=== PATIENT | male | born 1955 | race Caucasian/White ===

== ENCOUNTER → 2017-11-04 | Outpatient (CLI) | payer MEDICARE ==
[~2017-11-04] MED LIST: ACTONEL 5 MG5 M1 PO; ADULT LOW DOSE81 MG PO; ASPIRIN81 M2 PO; AUGMENTIN 875875 M1; B12INJ SUBQ; CANASA1000 MG RC; CARAFATE 11 GM/10 M1 PO; DEXAMETHASONE 44 M1 PO; FENTANYL PA25 MCG/HR TRANSDERM; FLONASE16 GM NASAL; FOSAMAX 10 MG10 MG PG; HYDROGEN PEROX480 M1; OMEPRAZOLE40 MG PO; ONDANSETRON ODT4 MG PO; OXYCODONE H5 MG/5 ML PER TUBE; PERCOCET 5-3251 EACH; PROTONIX40 M2 PO; RANITIDINE15 MG/1 ML PO; REMICADE 1100 MG/VIA IV; TRIPLE ANTIBIOT30 G2; VITAMIN D 5050000 I1 PO
== END ==
LOC: M.WC 10:00
DX: M27.8 Other specified diseases of jaws (principal); I10 Essential (primary) hypertension; F17.200 Nicotine dependence, unspecified, uncomplicated; Z85.828 Personal history of other malignant neoplasm of skin; Z90.49 Acquired absence of other specified parts of digestive tract; Z92.3 Personal history of irradiation

== ENCOUNTER → 2017-11-22 | Outpatient (CLI) | payer MEDICARE ==
--- NOTE | 2017-12-07 02:37 | ONC ---
[place] [address] RADIATION ONCOLOGY NOTE Name: DALTON MARAVILLA Room: [facility]#: [id number] Admission: 11/22/17 Attend Phys: Arturo Carlisle MD Discharge: Date of : 59 Report #: [id number] THIS REPORT FOR: //name// CC: Arturo Carlos MD DATE OF SERVICE: 11/22/2017 REFERRING PHYSICIANS: Dr. Us and that is primary care physician; Dr. Lyle Carreno from Cardiology; Ángel Schroeder DO; Baljit Morales MD.; Gilda Carlos MD. [facility] phone is [phone]. PRIMARY SITE AND HISTOPATHOLOGY: The patient received postoperative radiation therapy for a stage VILLA oropharyngeal cancer. The patient underwent a right radical tonsillectomy as well as right modified radical neck dissection. The patient had 5 out of 20 lymph nodes involved with poorly differentiated squamous cell carcinoma. He went on to receive postoperative chemoradiotherapy. The radiation treatments were completed on 02/10/2013. INTERVAL NOTE: The patient is eating well. He is eating a regular diet. He uses PreviDent. He also likes to use Biotene. He has a tooth that fractured in the lower left mandibular area. So, he is undergoing hyperbaric oxygen treatments in preparation for its extraction. He is going to be seeing a physician, Dr. Barber, to remove it. In spite of the tooth issues, he is able to still eat food such as pastas like Rigatoni. MEDICATIONS: 125 mcg of levothyroxine, Crestor, Prevacid, and Flonase for allergies. 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 Cigarettes: He has transitioned from cigarettes, which he smoked for about 20 years, then in 1990 he switched to smoking cigars and he still smokes cigars. REVIEW OF SYSTEMS: RESPIRATORY: The patient's breathing was baseline. He was not short of breath. MUSCULOSKELETAL: He had good range of motion in his upper extremity. PHYSICAL EXAMINATION: VITAL SIGNS: The patient weighed 199.2 pounds on 11/22/2017, 197 pounds on 05/17/2017. On 11/22/2017, [place] [address] RADIATION ONCOLOGY NOTE Name: DALTON MARAVILLA Room: [facility]#: [id number] Admission: 11/22/17 Attend Phys: Arturo Carlisle MD Discharge: Date of : 59 Report #: [id number] 130/86, pulse 66, respirations 20. LYMPH NODES: He had no palpable cervical or supraclavicular lymphadenopathy. HEAD, EYES, EARS, NOSE AND THROAT EXAM: Mouth had no suspicious visible lesions or suspicious palpable lesions. There were no suspicious palpable lesions in the tonsillar area that were seen. HEART: Had a regular rate and rhythm without murmur. LUNGS: were clear to auscultation. LABORATORY DATA: From 11/20/2017, TSH was 1.88, which was within normal limits on his present dose of 25 mcg of levothyroxine. ASSESSMENT AND PLAN: 1. History of head and neck cancer- There is no evidence of head and neck cancer at this time. The patient was asked to schedule a followup appointment to see me in about 6-7 months. 2. Hypothyroidism- The patient was given a refill for 125 mcg of levothyroxine per day. A TSH was ordered in about 6-7 months and the patient was asked to schedule a followup appointment to see me afterwards. 3. Dental care- he is undergoing an extraction after hyperbaric treatments and he was given a refill for PreviDent to use for dental care. 4. Cigarette smoking- The patient was given a requisition for a screening chest CT without contrast in 05/2018 or 06/2018 and he was asked to schedule a follow up appointment with me afterwards. 5. Aortic ectasia- The patient continues to see the timber surveyor, Dr. Lyle Carreno, who monitors that issue. 6. Crohn's disease, appears to be in remission- He follows with Dr. Schroeder with regards to that issue. Thank you for allowing me to participate in the care of this patient. <ELECTRONICALLY SIGNED> By: Arturo Carlisle MD 12/07/17 0237 [id number] [id number] Carlisle MD /nt
== END ==
LOC: M.RTH 01:54
DX: Z08 Encounter for follow-up examination after completed treatment for malignant neoplasm (principal); E03.9 Hypothyroidism, unspecified; F17.200 Nicotine dependence, unspecified, uncomplicated; I77.819 Aortic ectasia, unspecified site; K50.90 Crohn's disease, unspecified, without complications; Z85.89 Personal history of malignant neoplasm of other organs and systems

== ENCOUNTER → 2017-12-02 | Outpatient (CLI) | payer MEDICARE | LOC: M.WC 04:53 | DX: M27.8 Other specified diseases of jaws (principal); I10 Essential (primary) hypertension; F17.210 Nicotine dependence, cigarettes, uncomplicated; Z72.89 Other problems related to lifestyle ==

== ENCOUNTER → 2018-07-09 | Outpatient (CLI) | payer MEDICARE ==
--- NOTE | 2018-07-21 22:33 | ONC ---
[address] [address] RADIATION ONCOLOGY NOTE Name: DALTON MARAVILLA Room: [facility]#: [id number] Admission: 07/09/18 Attend Phys: Arturo Carlisle MD Discharge: Date of : 59 Report #: [id number] THIS REPORT FOR: //name// CC: Arturo Fraser DATE OF SERVICE: 07/09/2018 REFERRING PHYSICIANS: Include, Dr. Cal Us; Dr. Lyle Carreno; Dr. Ángel Schroeder; Dr. Baljit Morales, Dr. Gilda Carlos and Dr. Fraser. [facility] phone is [phone]. PRIMARY SITE AND HISTOPATHOLOGY: The patient received postoperative radiation therapy for a stage VILLA oropharyngeal cancer. The patient underwent a right radical tonsillectomy as well as right modified radical neck dissection. The patient had 5/20 lymph nodes involved with poorly differentiated squamous cell carcinoma. He went on to receive postoperative chemoradiotherapy. The radiation treatments were completed on 02/10/2013. INTERVAL NOTE: The patient is eating well. He is eating a regular diet. He uses PreviDent gel and he has done well after having a fractured tooth extracted and undergoing hyperbaric oxygen. He felt like that has healed up well. He had that taken care of by his oral surgeon, Dr. Fraser. MEDICATIONS: 125 mcg of levothyroxine, Crestor, Prevacid, Flonase for allergies. 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 Cigarettes: he has transitioned from cigarettes, which he smoked for about 20 years. Then around 1990, he switched to smoking cigars and he still smokes cigars. REVIEW OF SYSTEMS: RESPIRATORY: The patient's breathing was baseline. He was not short of breath. MUSCULOSKELETAL: He has good range of motion in his upper extremity. PHYSICAL EXAMINATION: VITAL SIGNS: The patient weighed 199.4 pounds on 07/09/2018 and 199.2 pounds on 11/22/2017. On 07/09/2018 blood pressure was 134/71, pulse 55, respirations 20, oxygen saturation 98%. LYMPH NODES: The patient had no palpable [place] [address] RADIATION ONCOLOGY NOTE Name: DALTON MARAVILLA Room: [facility]#: [id number] Admission: 07/09/18 Attend Phys: Arturo Carlisle MD Discharge: Date of : 59 Report #: [id number] lymphadenopathy. HEAD, EYES, EARS, NOSE AND THROAT: Mouth had no suspicious visible lesions or suspicious palpable lesions. There were no suspicious palpable lesions in the tonsillar area. HEART: Had a regular rate and rhythm without murmur. LUNGS: were clear to auscultation. LABORATORY DATA: From 07/07/2018, TSH was 1.89, which was within normal limits on his present dose of 125 mcg of levothyroxine per day. ASSESSMENT AND PLAN: 1. History of head and neck cancer- There is no evidence of head and neck cancer at this time. The patient was asked to schedule a followup appointment to see me in about 1 year. 2. Hypothyroidism- The patient was given a refill for 125 mcg of levothyroxine per day. TSH was ordered in about 1 year and the patient was asked to schedule a followup appointment to see me afterwards. 3. Dental care- The patient was given a refill for PreviDent and he puts that on his teeth with a brush at night. 4. Cigar smoking- The patient was encouraged to quit smoking cigars. 5. Aortic ectasia- The patient continues to follow up with his film numberer, Dr. Lyle Carreno. He just said he saw him last Saturday and he sees him about once a year. 6. Crohn's disease appears to be in remission- He follows with his tank cooper, Dr. Schroeder, with regards to that issue. Thank you for allowing me to participate in the care of this patient. <ELECTRONICALLY SIGNED> By: Arturo Carlisle MD 07/21/18 2233 [id number] Carlisle MD /nt
== END ==
LOC: M.RTH 05:21
DX: E03.9 Hypothyroidism, unspecified (principal); F17.210 Nicotine dependence, cigarettes, uncomplicated; I77.819 Aortic ectasia, unspecified site; K50.00 Crohn's disease of small intestine without complications; Z85.89 Personal history of malignant neoplasm of other organs and systems

== ENCOUNTER → 2019-07-10 | Outpatient (CLI) | payer MEDICARE ==
--- NOTE | 2019-07-26 17:52 | ONC ---
[place] [address] RADIATION ONCOLOGY NOTE Name: DALTON MARAVILLA Room: [facility]#: [id number] Admission: 07/10/19 Attend Phys: Arturo Carlisle MD Discharge: Date of : 59 Report #: [id number] THIS REPORT FOR: //name// CC: Arturo Fraser DATE OF SERVICE: 07/10/2019 RADIATION ONCOLOGY FOLLOWUP NOTE REFERRING PHYSICIANS: 1. Dr. Cal Us 2. Dr. Lyle Carreno 3. Dr. Ángel Schroeder 4. Dr. Baljit Morales 5. Gilda Carlos MD 6. Dr. Fraser [facility] phone is [phone]. PRIMARY SITE AND HISTOPATHOLOGY: The patient received postoperative radiation therapy for a stage VILLA oropharyngeal cancer. The patient underwent a right radical tonsillectomy as well as right modified radical neck dissection. The patient had 5/20 lymph nodes involved with poorly differentiated squamous cell cancer. He went on to receive postoperative chemoradiotherapy. The radiation treatments were completed on 02/10/2013. INTERVAL NOTE: The patient is eating well. He is eating a regular diet. He uses PreviDent gel. He had two teeth extracted by Dr. Fraser and underwent hyperbaric oxygen. MEDICATIONS: 125 mcg of levothyroxine per day, Crestor, Prevacid and Flonase. 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 Cigarettes, he transitioned from cigarettes which he smoked for about 20 years then in 1990, he switched to smoking cigars. He said he quit smoking cigars and cigarettes altogether on 06/23/2019. REVIEW OF SYSTEMS: RESPIRATORY: The patient's breathing was baseline. He was not short of breath. MUSCULOSKELETAL: The patient indicated he lifted something [place] [address] RADIATION ONCOLOGY NOTE Name: MARAVILLADALTON Room: [facility]#: [id number] Admission: 07/10/19 Attend Phys: Arturo Carlisle MD Discharge: Date of : 59 Report #: [id number] developed back pain due to muscle strain. PHYSICAL EXAMINATION: VITAL SIGNS: The patient weighed 202 pounds on 07/10/2019 and 199.4 pounds on 07/09/2018. On 07/10/2019; blood pressure was 148/76, pulse 76, respirations 16 and oxygen saturation 98%. LYMPH NODES: The patient had no palpable cervical or supraclavicular lymphadenopathy. HEENT: Mouth had no suspicious visible lesions or suspicious palpable lesions. There were no suspicious palpable lesions in the tonsillar areas. HEART: Had a regular rate and rhythm without murmur. LUNGS: were clear to auscultation. LABORATORY DATA: TSH was 4.52 on 07/02/2019 and 1.89 on 07/07/2018. The normal value for TSH is usually 0.4-4.5. ASSESSMENT AND PLAN: 1. History of head and neck cancer- There is no evidence of head and neck cancer at this time. The patient was asked to schedule a followup appointment to see me in about 1 year. 2. Hypothyroidism- The patient's TSH was slightly higher than normal, so the patient's levothyroxine was increased from 125 mcg per day to 137 mcg per day and a TSH was ordered in about 1 year and the patient was asked to follow up with me afterwards. 3. Dental care- The patient uses PreviDent for dental care and he applies it to his teeth with a brush. 4. Cigar smoking- The patient was encouraged to quit smoking cigars. 5. Aortic ectasia- The patient continues to follow up with his oil well drilling manager, Dr. Lyle Carreno with regards to this issue. 6. Crohn's disease, which tends to have been in remission lately- The patient follows up with his heading and priming tool setter, Dr. Schroeder with regards to that. Thank you for allowing me to participate in the care of this patient. <ELECTRONICALLY SIGNED> By: Arturo Carlisle MD 07/26/19 1752 [id number] [id number] Carlisle MD /nt
== END ==
LOC: M.RTH 09:00
DX: Z08 Encounter for follow-up examination after completed treatment for malignant neoplasm (principal); C76.0 Malignant neoplasm of head, face and neck; E03.9 Hypothyroidism, unspecified; I77.819 Aortic ectasia, unspecified site; K50.90 Crohn's disease, unspecified, without complications; F17.200 Nicotine dependence, unspecified, uncomplicated

== ENCOUNTER 2019-10-06 11:14 | Emergency (ER) | payer MEDICARE ==
[~2019-10-06] VITALS: Ht 177.8 cm; Wt 90.7 kg
[2019-10-06] MEDS ORDERED: SIMVASTATIN80 MG PO (11:29)
[2019-10-06] MEDS ORDERED: AUGMENTIN 500-1 EACH PO ×2 (14:35→14:43)
[2019-10-06 14:49] VITALS: BP 153/82
== END 2019-10-06 14:50 | disposition home or self-care (01) ==
LOC: M.ERS 11:14
DX: S61.412A Laceration without foreign body of left hand, initial encounter (principal); I10 Essential (primary) hypertension; Z90.49 Acquired absence of other specified parts of digestive tract; Z88.8 Allergy status to other drugs, medicaments and biological substances; W22.8XXA Striking against or struck by other objects, initial encounter; Y93.89 Activity, other specified; Y92.89 Other specified places as the place of occurrence of the external cause; Y99.8 Other external cause status

== ENCOUNTER → 2020-07-01 | Outpatient (CLI) | payer MEDICARE ==
[~2020-07-01] MED LIST changes: +AUGMENTIN 500-1 EACH PO; +SIMVASTATIN80 MG PO
--- NOTE | 2020-07-08 11:36 | ONC ---
[place] [address] RADIATION ONCOLOGY NOTE Name: DALTON MARAVILLA Room: [facility]#: [id number] Admission: 07/01/20 Attend Phys: Arturo Carlisle MD Discharge: Date of : 59 Report #: [id number] THIS REPORT FOR: //name// CC: Arturo Fraser DMD DATE OF SERVICE: 07/01/2020 FOLLOWUP NOTE REFERRING PHYSICIAN: Ángel Schroeder DO; Lyle Carreno MD; Cal Us DO; Baljit Morales MD; Gilda Carlos MD; Gamaliel Fraser DMD. [facility] phone is [phone]. PRIMARY SITE AND HISTOPATHOLOGY: The patient received postoperative radiation therapy for a stage VILLA oropharyngeal cancer. The patient underwent a right radical tonsillectomy as well as a right modified radical neck dissection. The patient had 5/20 lymph nodes involved with poorly differentiated squamous cell cancer. He went on to receive postoperative chemotherapy/radiation therapy. The radiation treatments were completed on 02/10/2013. INTERVAL NOTE: The patient is eating well. He is eating a regular diet. He uses PreviDent gel and he applies that to his teeth with a brush. He had 2 teeth extracted in the past by Dr. Fraser and underwent hyperbaric oxygen and he said that all healed up well and his teeth are doing well. MEDICATIONS: Include 137 mcg of levothyroxine per day, Crestor, Prevacid, and Flonase. 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 Cigarettes: he transitioned from cigarettes, which he smoked for about 20 years until 1990 to cigars and then he quit smoking cigars and cigarettes altogether around 06/2019. REVIEW OF SYSTEMS: RESPIRATORY: The patient's breathing was baseline. He was not short of breath. MUSCULOSKELETAL: The patient has normal range of motion in his upper extremities. PHYSICAL EXAMINATION: [place] [address] RADIATION ONCOLOGY NOTE Name: DALTON MARAVILLA Room: [facility]#: [id number] Admission: 07/01/20 Attend Phys: Arturo Carlisle MD Discharge: Date of : 59 Report #: [id number] VITAL SIGNS: The patient weighed 204.6 pounds on 07/01/2020. He was 202 pounds on 07/10/2019. On 07/01/2020, blood pressure was 143/73, pulse was 56, temperature was 98.6 degrees Fahrenheit, respirations 16, oxygen saturation was 98%. LYMPH NODES: The patient had no palpable cervical or supraclavicular lymphadenopathy. HEAD, EYES, EARS, NOSE AND THROAT: Mouth had no suspicious visible lesions or suspicious palpable lesions. There were no suspicious palpable lesions in the tonsillar areas. HEART: Had a regular rate and rhythm without murmur. LUNGS: were clear to auscultation. LABORATORY DATA: The patient's TSH level was 1.56, which was within normal limits with him taking 137 mcg of levothyroxine per day. The normal range is 0.4-4.5. ASSESSMENT AND PLAN: 1. History of head and neck cancer- There is no evidence of head and neck cancer at this time. The patient was asked to schedule a followup appointment to see me in about 1 year. 2. Hypothyroidism- The patient was given a refill for 137 mcg of levothyroxine per day and a TSH was ordered in about 1 year and the patient was asked to schedule a followup appointment to see me afterwards. 3. Dental care- The patient uses PreviDent for dental care and the patient was given a refill for PreviDent. 4. Aortic ectasia- The patient continues to follow up with his cyber incident handler, Dr. Lyle Carreno with regards to this issue. 5. Crohn's disease- He has been in remission in the recent past and he had followed up with the forensic accountant, Dr. Schroeder with regards to that issue in the past. Thank you for allowing me to participate in the care of this patient. <ELECTRONICALLY SIGNED> By: Arturo Carlisle MD 07/08/20 1136 [id number] Carlisle MD /nt
== END ==
LOC: M.RTH 04:34
PROVIDERS: ATTEND Radiology Radiation Oncology
DX: Z08 Encounter for follow-up examination after completed treatment for malignant neoplasm (principal); E03.9 Hypothyroidism, unspecified; K50.90 Crohn's disease, unspecified, without complications; I77.810 Thoracic aortic ectasia; Z85.818 Personal history of malignant neoplasm of other sites of lip, oral cavity, and pharynx; Z92.3 Personal history of irradiation